=== PATIENT | female | born 1955 | race Caucasian/White ===

== ENCOUNTER 2018-07-21 03:07 | Observation (INO) | payer BC ==
[2018-07-21] MEDS ORDERED: methylPREDNISolone SOD SUCC 125 MG/2 ML VIAL ONE (03:15)
[2018-07-21] MEDS ORDERED: IPRATROPIUM/ALBUTEROL 3 ML DEYVIAL ONE (03:15)
[2018-07-21] MEDS ORDERED: IPRATROPIUM/ALBUTEROL 3 ML DEYVIAL IH ONE (03:29)
[2018-07-21] MEDS ORDERED: methylPREDNISolone SOD SUCC 125 MG/2 ML VIAL IVP ONE (03:29)
[2018-07-21 03:35] LABS: PLATELET COUNT 221 10^3/uL (150-400)
[2018-07-21] MEDS ORDERED: AZITHROMYCIN IV 500 MG in NS 250 ML IV ONE (04:08)
[2018-07-21] MEDS ORDERED: NS 500 ML IV ONE (04:08)
--- NOTE | 2018-07-21 04:13 | EDPHY ---
H & P Stated Complaint: SOB x1 hour Time Seen by Provider: 07/21/18 03:23 HPI/ROS: HPI The patient presents with shortness of breath, cough for the last several weeks though worse over last several days. The patient had that she was diagnosed with bronchitis April and never completely improved. She flew from [place] to [place] and since then she has deteriorated. She had ongoing shortness breath , dyspnea on exertion include going up 1 flight of stairs. She not had chest pain. She has not had lower extremity edema. She was trying to sleep tonight could not fall asleep so comes into the emergency department. She has a history of COPD and uses Advair daily. She has been on Lasix for the last 1 year. He has a history of hypertension though her blood pressure is well controlled. She is not aware of any heart problems. REVIEW OF SYSTEMS 10 systems were reviewed and negative with the exception of the elements mentioned in the history of present illness. PMHx: COPD, hypertension Soc Hx: Smoker, here with her sister, visiting her son's wedding here in [place] today PHYSICAL General Appearance: Alert, no distress Eyes: Pupils equal and round no pallor or injection ENT, Mouth: Mucous membranes moist Respiratory: Wheezing throughout all lung garcia, able to speak in complete sentences Cardiovascular: Tachycardic rate and regular rhythm Gastrointestinal: Abdomen is soft and non-tender, no masses, bowel sounds normal Neurological: A&O, moves all extremities Skin: Warm and dry, no rashes Musculoskeletal: Neck is supple non tender Extremities: symmetrical, full range of motion , no lower extremity edema Psychiatric: Patient is oriented X 3, there is no agitation Source: Patient Exam Limitations: No limitations - Personal History Current Tetanus/Diphtheria Vaccine: Yes - Medical/Surgical History Hx Asthma: No Hx Chronic Respiratory Disease: Yes Hx Diabetes: No Hx Cardiac Disease: No Hx Renal Disease: No Hx Cirrhosis: No Hx Alcoholism: No Hx HIV/AIDS: No Hx Splenectomy or Spleen Trauma: No Other PMH: bronchitis - Social History Smoking Status: Current every day smoker Constitutional: Initial Vital Signs Temperature (C) 36.4 C 07/21/18 03:08 Heart Rate 119 H 07/21/18 03:08 Respiratory Rate 30 H 07/21/18 03:08 Blood Pressure 134/77 H 07/21/18 03:08 O2 Sat (%) 84 L 07/21/18 03:08 O2 Delivery Mode Nasal Cannula O2 (L/minute) 2 Allergies/Adverse Reactions: No Known Allergies Allergy (Verified 07/21/18 08:25) Home Medications: Medication Instructions Recorded Esomeprazole Magnesium [Nexium] 20 mg PO DAILY 07/21/18 Fluticasone/Salmeter 250/50Mcg 1 puffs IH BID 07/21/18 [Advair 250/50 (*)] Furosemide [Lasix 20 MG (*)] 20 mg PO DAILY 07/21/18 Losartan Potassium 100 mg PO DAILY 07/21/18 Naproxen Sodium [Naprelan] 500 mg PO BID 07/21/18 Pramipexole Di-HCl [Mirapex 1 mg 1 mg PO HS 07/21/18 (*)] Medical Decision Making - Diagnostics EKG Interpretation: EKG: Complete interpretation has been separately recorded in the [facility] archive. Summary impression: Sinus tachycardia Imaging Results: X-ray demonstrates bilateral streaky infiltrates with cardiomegaly, interpreted by me, radiology interpretation pending. Imaging: I viewed and interpreted images myself Differential Diagnosis: 63-year-old female with history of COPD, hypertension presents with progressive shortness of breath, cough since arriving to [place] 3 days ago. Here, she is hypoxic, tachypneic, short of breath. She received DuoNeb prior to my assessment with improved her symptoms. Chest x-ray revealed at diffuse streaky infiltrates throughout both lung garcia with cardiomegaly concerning for CHF with acute decompensation. BNP was also elevated at 1800. Patient has an elevated creatinine with no prior history of such at 2.0. She admits that she is not urinating much lately. She does take Lasix and her dose has not changed recently. Her white blood cell count is elevated and it is difficult to tell if there is underlying pneumonia, thus I have treated her with ceftriaxone and azithromycin and have sent blood cultures. Her influenza testing is negative. She is requiring 4 L of oxygen though is adamant about being discharged because she would like to attend her son's wedding. We will able to arrange for an oxygen tank for her to go. However, about 3 hr into her stay she stood up to go to the bathroom and felt extremely short of breath. I have encouraged her to be admitted to the hospital and not leave against medical advice. Potentially family arrived and convinced her to be admitted to the hospital. I consulted with Dr. Olmos of the hospitalist [facility] pp consultant and we will admit her to the PCU. Given that she has an elevated D-dimer with GFR which is approximately 30, we have ordered a V/Q scan which will happen later this morning. - Data Points Laboratory Results: Laboratory Results 07/21/18 03:25 07/21/18 03:25 Medications Given: Albuterol/Ipratropium (Duoneb) 3 ml IH QID CHAS Stop: 01/17/19 11:59 Last Admin: 07/21/18 21:52 Dose: 3 ml Heparin Sodium (Porcine) (Heparin Sc Injection) 5,000 unit SC Q8 CHAS Stop: 01/17/19 13:59 Last Admin: 07/21/18 20:26 Dose: 5,000 unit Methylprednisolone Sodium Succinate (Solu-Medrol) 60 mg IVP Q6HRS CHAS Stop: 01/17/19 11:59 Last Admin: 07/22/18 00:47 Dose: 60 mg Pramipexole Dihydrochloride (Mirapex) 1 mg PO HS CHAS Stop: 01/17/19 20:59 Last Admin: 07/21/18 20:26 Dose: 1 mg Fluticasone/Salmeterol (Advair) 1 puffs IH BID CHAS Stop: 01/17/19 08:59 Last Admin: 07/21/18 22:15 Dose: 1 puffs Discontinued Medications Albuterol/Ipratropium (Duoneb) 3 ml IH EDNOW ONE Stop: 07/21/18 03:30 Last Admin: 07/21/18 03:31 Dose: 3 ml Furosemide (Lasix Injection) 20 mg IVP ONCE ONE Stop: 07/21/18 11:28 Last Admin: 07/21/18 13:00 Dose: 20 mg Azithromycin 500 mg/ Sodium (Chloride) 255 mls @ 255 mls/hr IV EDNOW ONE PRN Reason: Protocol Stop: 07/21/18 05:07 Last Admin: 07/21/18 04:41 Dose: 255 mls Ceftriaxone Sodium/Dextrose (Rocephin 1 Gm (Premix)) 50 mls @ 100 mls/hr IV EDNOW ONE PRN Reason: Protocol Stop: 07/21/18 04:37 Last Admin: 07/21/18 04:21 Dose: 50 mls Sodium Chloride (Ns) 500 mls @ 1,000 mls/hr IV EDNOW ONE PRN Reason: Protocol Stop: 07/21/18 04:37 Last Admin: 07/21/18 04:21 Dose: 500 mls Methylprednisolone Sodium Succinate (Solu-Medrol) 125 mg IVP EDNOW ONE Stop: 07/21/18 03:30 Last Admin: 07/21/18 03:31 Dose: 125 mg Point of Care Test Results: Chemistry 07/21/18 07/21/18 05:53 05:28 POC Sodium 137 mEq/L mEq/L (135-145) POC Potassium 4.1 mEq/L mEq/L (3.3-5.0) POC Chloride 102 mEq/L mEq/L (97-110) POC Total CO2 20 mEq/L L mEq/L (22-31) POC BUN 31 mg/dL H mg/dL (7-23) POC Creatinine 2.0 mg/dL H mg/dL (0.6-1.0) POC Glucose 128 mg/dL H mg/dL (70-100) POC Troponin I 0.09 ng/mL H ng/mL (0.00-0.08) ISTAT H&H 07/21/18 05:28 POC Hgb 11.6 gm/dL L gm/dL (12.6-16.3) POC Hct 34 % L % (38-47) Departure - Departure Disposition: [facility] Inpatient Acute Clinical Impression: Chronic obstructive pulmonary disease with acute exacerbation, Hypoxia Acute renal failure Qualifiers: Acute renal failure type: unspecified Qualified Code(s): N17.9 - Acute kidney failure, unspecified Acute exacerbation of congestive heart failure Qualifiers: Heart failure type: unspecified Qualified Code(s): I50.9 - Heart failure, unspecified Condition: Fair
--- NOTE | 2018-07-21 04:37 | PDHOMEO2F ---
Home Oxygen Face to Face Home Orders: I certify that a physician or a nurse practitioner or physician's volunteer services assistant has had a [id number] encounter with this patient on the date of this order due to the diagnosis listed, which relates to the primary reason the patient requires home oxygen. Alternative treatments have been tried, or considered, and deemed ineffective. It is anticipated that supplemental oxygen will result in improvement with treatment. Home oxygen qualifying diagnosis: hypoxia SpO2 on room air (%): 84% Frequency of home oxygen needed: continuous Home oxygen liters per minute: 2L Home oxygen delivery device: nasal cannula Concentrator: No E-tanks for mobility and back up: Yes If ordering portable O2, is the patient mobile in the home?: Yes I certify that, based on these findings, the home oxygen is medically necessary for this patient for the following length of time. Length of time home oxygen needed: 1 week
--- NOTE | 2018-07-21 08:27 | PDGENHP ---
History and Physical - Chief Complaint shortness of breath - History of Present Illness shortness of hbcarina started in mid may. went to [facility] and was given breahing treatment, azithro, and prednisone. she completed this june 30. she got a colonoscopy on june 30 and the tech noted that she was still hypoxic. she thinks she sort of felt better but not completely. she still felt short of breath but it was not as bad. she continued to smoke a half a pack a day of tobacco. she drove out here from [place] for her sons wedding and arrived here tuesday. since arrival here she has been markedly more short of breath. last night she finally felt like she could not breath at rest. this prompted her to come to the ER. she had orthopnea last night. she has been coughing up yellow phlegm. no increased edema. She has tried using her inhaler but it is not helping. she does not have a fever, or chills, but does have a runny nose. History Information - Allergies/Home Medication List Allergies/Adverse Reactions: No Known Allergies Allergy (Verified 07/21/18 08:25) Home Medications: Esomeprazole Magnesium [Nexium] 20 mg PO DAILY 07/21/18 [Last Taken 07/20/18] Fluticasone/Salmeter 250/50Mcg [Advair 250/50 (*)] 1 puffs IH BID 07/21/18 [ Last Taken 07/20/18 21:00] Furosemide [Lasix 20 MG (*)] 20 mg PO DAILY 07/21/18 [Last Taken 07/20/18] Losartan Potassium 100 mg PO DAILY 07/21/18 [Last Taken 07/20/18] Naproxen Sodium [Naprelan] 500 mg PO BID 07/21/18 [Last Taken 07/20/18 09:00] Pramipexole Di-HCl [Mirapex 1 mg (*)] 1 mg PO HS 07/21/18 [Last Taken 07/20/18] I have personally reviewed and updated: family history, medical history, social history, surgical history - Past Medical History COPD, GERD, hypertension Additional medical history: right hip replacement, spine growth removed, - Surgical History Reports: no pertinent surgical hx - Family History Positive for: non-pertinent - Social History Smoking Status: Current every day smoker Review of Systems Review of Systems: ROS: 10pt was reviewed & negative except for what was stated in HPI & below Physical Exam Physical Exam: Temp Pulse Resp BP Pulse Ox 36.4 C 103 H 18 110/78 94 07/21/18 03:08 07/21/18 07:47 07/21/18 07:47 07/21/18 07:47 07/21/18 07:47 O2 (L/minute) 2 Constitutional: no apparent distress Eyes: PERRL Ears, Nose, Mouth, Throat: moist mucous membranes Cardiovascular: regular rate and rhythym Respiratory: reduced air movement, expiratory wheeze Gastrointestinal: normoactive bowel sounds Genitourinary: no bladder fullness Skin: warm Musculoskeletal: full muscle strength Neurologic: AAOx3 Psychiatric: interacting appropriately Lymph, Heme, Immunologic: no cervical LAD Lab Data & Imaging Review 07/21/18 03:25 07/21/18 03:25 WBC 17.32 10^3/uL (3.80-9.50) H 07/21/18 03:25 RBC 3.30 10^6/uL (4.18-5.33) L 07/21/18 03:25 Hgb 11.1 g/dL (12.6-16.3) L 07/21/18 03:25 POC Hgb 11.6 gm/dL (12.6-16.3) L 07/21/18 05:28 Hct 33.5 % (38.0-47.0) L 07/21/18 03:25 POC Hct 34 % (38-47) L 07/21/18 05:28 MCV 101.5 fL (81.5-99.8) H 07/21/18 03:25 MCH 33.6 pg (27.9-34.1) 07/21/18 03:25 MCHC 33.1 g/dL (32.4-36.7) 07/21/18 03:25 RDW 13.4 % (11.5-15.2) 07/21/18 03:25 Plt Count 221 10^3/uL (150-400) 07/21/18 03:25 MPV 10.4 fL (8.7-11.7) 07/21/18 03:25 Neut % (Auto) 85.9 % (39.3-74.2) H 07/21/18 03:25 Lymph % (Auto) 6.6 % (15.0-45.0) L 07/21/18 03:25 [place] % (Auto) 6.6 % (4.5-13.0) 07/21/18 03:25 Eos % (Auto) 0.2 % (0.6-7.6) L 07/21/18 03:25 Baso % (Auto) 0.2 % (0.3-1.7) L 07/21/18 03:25 Nucleat RBC Rel Count 0.0 % (0.0-0.2) 07/21/18 03:25 Absolute Neuts (auto) 14.85 10^3/uL (1.70-6.50) H 07/21/18 03:25 Absolute Lymphs (auto) 1.15 10^3/uL (1.00-3.00) 07/21/18 03:25 Absolute Monos (auto) 1.15 10^3/uL (0.30-0.80) H 07/21/18 03:25 Absolute Eos (auto) 0.04 10^3/uL (0.03-0.40) 07/21/18 03:25 Absolute Basos (auto) 0.04 10^3/uL (0.02-0.10) 07/21/18 03:25 Absolute Nucleated RBC 0.00 10^3/uL (0-0.01) 07/21/18 03:25 Immature Gran % 0.5 % (0.0-1.1) 07/21/18 03:25 Immature Gran # 0.09 10^3/uL (0.00-0.10) 07/21/18 03:25 D-Dimer 1.29 ug/mLFEU (0.00-0.50) H 07/21/18 03:25 VBG Lactic Acid 1.1 mmol/L (0.7-2.1) 07/21/18 05:55 POC Sodium 137 mEq/L (135-145) 07/21/18 05:28 Sodium 137 mEq/L (135-145) 07/21/18 03:25 POC Potassium 4.1 mEq/L (3.3-5.0) 07/21/18 05:28 Potassium 4.0 mEq/L (3.5-5.2) 07/21/18 03:25 POC Chloride 102 mEq/L (97-110) 07/21/18 05:28 Chloride 103 mEq/L (97-110) 07/21/18 03:25 Carbon Dioxide 18 mEq/l (22-31) L 07/21/18 03:25 POC Total CO2 20 mEq/L (22-31) L 07/21/18 05:28 Anion Gap 16 mEq/L (6-14) H 07/21/18 03:25 POC BUN 31 mg/dL (7-23) H 07/21/18 05:28 BUN 34 mg/dL (7-23) H 07/21/18 03:25 Creatinine 2.1 mg/dL (0.6-1.0) H 07/21/18 03:25 POC Creatinine 2.0 mg/dL (0.6-1.0) H 07/21/18 05:28 Estimated GFR 24 07/21/18 03:25 Glucose 107 mg/dL (70-100) H 07/21/18 03:25 POC Glucose 128 mg/dL (70-100) H 07/21/18 05:28 Calcium 8.9 mg/dL (8.5-10.4) 07/21/18 03:25 POC Troponin I 0.09 ng/mL (0.00-0.08) H 07/21/18 05:53 NT-Pro-B Natriuret Pep 1800 pg/mL (0-125) H 07/21/18 03:25 Nasal Influenza A PCR NEGATIVE FOR FLU A (NEGATIVE) 07/21/18 04:20 Nasal Influenza B PCR NEGATIVE FOR FLU B (NEGATIVE) 07/21/18 04:20 RSV (PCR) NEGATIVE FOR RSV (NEGATIVE) 07/21/18 04:20 Assessment & Plan Assessment: CHF exacerbation- clinically the patient looks euvolemic on examination. BNP is 1800. I reviewed the chest x-ray which does not show any cardiomegaly but possible mild pulmonary edema. Etiology of elevated BNP may be related to hypoxia from coming from low elevation in the setting of COPD exacerbation. -check echo -caution with Lasix given her underlying acute kidney injury -IV lasix 20mg IV and assess response Acute hypoxemic respiratory- likely secondary to COPD exacerbation, and coming [place] sea [place] altitude. May be underlying CHF exacerbation as well. Her D-dimer is elevated so Old pursue a V/Q scan as well given that she has underlying renal insufficiency. -treat COPD exacerbation with steroids,abx, nebs -V/Q scan to rule out PE -oxygen - Chronic obstructive pulmonary disease with acute exacerbation (Acute)- chest x- ray with no obvious pulmonary infiltrates to suggest bacterial pneumonia. Flu swab negative. She does have a white count and is complaining of coughing up yellow phlegm. -Rocephin and azithromycin -Solu-Medrol 60 q.6 -nebs -oxygen p.r.n. Elevated troponin- EKG with sinus tachycardia and no acute ST or T-wave changes to suggest ischemia. Likely her mildly elevated troponin is due to demand ischemia in the setting of COPD exacerbation and oxygen supply/demand mismatch. Will cycle troponins and any acute jump will prompt cardiology consultation. FRANCHESKA-patient denies any history of underlying kidney disease but she does take an angiotensin receptor trell and fair amount of NSAIDs both of which may have contributed to her bump in creatinine. At this point she looks euvolemic with possibly trace pitting edema. -hold fluids -repeat in am Hypertension- she is borderline hypotensive currently. Will hold losartan in the setting of underlying acute kidney injury. Restless legs- continue Mirapex GERD- hold PPI with her underlying francheska, will start Pepcid Prophylaxis- SCDs and heparin Fluids- none for now Electrolytes- replete Mag Nutrition-cardiac diet Cor- full Dispo- observation for now as she does have the potential to improve
[2018-07-21] MEDS ORDERED: ALBUTEROL 60 PUFFS/8 GM MDI IH PRN (08:33)
[2018-07-21] MEDS ORDERED: ONDANSETRON DISINTEGRATING 4 MG TAB PO PRN (08:33)
[2018-07-21] MEDS ORDERED: ACETAMINOPHEN 325 MG TAB PO PRN (08:33)
[2018-07-21] MEDS ORDERED: ONDANSETRON 4 MG/2 ML VIAL IVP PRN (08:33)
[2018-07-21] MEDS: FLUTICASONE/SALMETER 250/50MCG DISKUS IH SCH ×2 (09:30→22:15)
--- NOTE | 2018-07-21 10:13 | ECHO ---
[email or web address] [address] [address] Main: [phone] Echocardiography Examination Transthoracic Name: MEL ROQUE MR#: [id number] Study Date: 07/21/2018 Study Time: 09:32 AM Date of : 1955 Age: 63 year(s) Height: 167.6 cm (66 in.) Weight: 113.4 kg (250 lb.) BSA: 2.2 m2 Gender: Female Examination: Echo Contrast: Image Quality: Adequate Rhythm: Heart Rate: BP: 117 mmHg/75 mmHg Indication: hypoxia, elevated BNP, sob from [place] Procedure Staff Referring Physician: Lining Repairer: Marla Wyman RDCS Reading Physician: Torres Alejandra MD Requesting Provider: Ordering Physician: Will Amor Indication: hypoxia, elevated BNP, sob from [place] Measurements Chambers AV/MV Label Value Normal Value Label Value Normal Value IVSd, 2D 1.1 cm (0.6cm - 1.1cm) AV PGmax 8 mmHg LVDd, 2D 4.5 cm (3.9cm - 5.3cm) AV PGmean 5 mmHg LVDs, 2D 3 cm (2.1cm - 4cm) AV Vmax 1.39 m/s LVEF, 2D 64 % (54% - 74%) MARGARITO D (continuity eq. 2.2 cm2 LVEF, BP 63 % (55% - 70%) VTI) LVOT PGmean 3 mmHg MV A Vmax 0.67 m/s LVOT Vmean 0.77 m/s MV DT 151 ms LVOTd 1.9 cm (1.8cm - 2cm) MV E' lateral 0.11 m/s LVPWd, 2D 1 cm MV E' mean 0.12 m/s LA Volume, BP 50 ml (22ml - 52ml) MV E' septal 0.12 m/s LADs, 2D 3.7 cm (2.7cm - 3.8cm) MV E Vmax 0.85 m/s LAESV index, BP 22.7 ml/m2 MV E/A 1.27 Additional Vessels MV E/E' lateral 8 Label Value Normal Value MV E/E' mean 7.39 AoRoot, 2D 2.9 cm (1.4cm - 2.6cm) MV E/E' septal 7.3 (0.45 - 1.25) MV PHT 0.04 s MV PHT 44 ms MVA PHT 5 cm2 TV/PV Patient: MEL ROQUE Study Date: 07/21/2018 Page 1 of 2 09:32 AM Label Value Normal Value RA Pressure 5 mmHg RVSP 33 mmHg TR Pmax 28 mmHg TR Vmax 2.65 m/s PV PGmax 3 mmHg PV Vmax, Caliper 0.8 m/s (0.6m/s - 0.9m/s) Conclusions Overall Conclusions: Limited study. Preserved LV systolic function. Normal right ventricular systolic function. No significant valvular abnormalities. Right ventricular systolic pressure estimated at 33 mm of mercury Findings Very technically difficult exam due to body habitus and difficulty breathing, limited windows. Left Ventricle: Left ventricle is normal in size. Normal global systolic left ventricular function. The ejection fraction, measured by Simpsons method, is 63 %. Left ventricle wall thickness is normal. There are no regional wall motion abnormalities. Right Ventricle: Normal size right ventricle. Right ventricular systolic function is normal. Left Atrium: The left atrium is normal in size. Right Atrium: The right atrium is normal in size. Mitral Valve: Mitral valve appears structurally normal. Trivial mitral regurgitation. No mitral valve stenosis. Aortic Valve: Aortic valve not well visualized. No significant aortic valve regurgitation. There is no aortic stenosis. Tricuspid Valve: Tricuspid valve leaflets are structurally normal. Mild tricuspid regurgitation. No tricuspid valve stenosis. Right Ventricular systolic pressure is measured at 33 mmHg. Pulmonary artery pressure normal. Pulmonic Valve: Pulmonic valve not well visualized. Aorta: The aortic root size in 2D measures 2.9 cm. Aorta Measurements AoRoot, 2D is 2.9 cm. Pericardium: No pericardial effusion. Exam Details Procedure Ordered: Echo Procedure Status: Routine study Image Quality: Adequate Facility Location: Cardiac Echo 1 (No Signature Object) Patient: MEL ROQUE Study Date: 07/21/2018 Page 2 of 2 09:32 AM [id number]
[2018-07-21] MEDS ORDERED: FUROSEMIDE 20 MG/2 ML VIAL IVP ONE (11:27)
[2018-07-21] MEDS: IPRATROPIUM/ALBUTEROL 3 ML DEYVIAL IH SCH ×3 (11:46→21:52)
[2018-07-21] MEDS: methylPREDNISolone SOD SUCC 125 MG/2 ML VIAL IVP SCH ×2 (13:00→18:10)
[2018-07-21] MEDS: HEPARIN 5,000 UNIT/0.5 ML INJ SC SCH ×2 (13:17→20:26)
[2018-07-21] MEDS: PRAMIPEXOLE 1 MG TAB PO SCH (20:26)
[2018-07-22] MEDS: methylPREDNISolone SOD SUCC 125 MG/2 ML VIAL IVP SCH ×4 (00:47→17:35)
[2018-07-22 04:13] LABS: PLATELET COUNT 223 10^3/uL (150-400)
[2018-07-22] MEDS: IPRATROPIUM/ALBUTEROL 3 ML DEYVIAL IH SCH ×4 (06:01→20:56)
[2018-07-22] MEDS: FLUTICASONE/SALMETER 250/50MCG DISKUS IH SCH ×2 (06:11→20:57)
[2018-07-22] MEDS: HEPARIN 5,000 UNIT/0.5 ML INJ SC SCH ×3 (06:11→20:07)
[2018-07-22] MEDS ORDERED: AZITHROMYCIN IV 500 MG in NS 250 ML IV SCH (09:00)
--- NOTE | 2018-07-22 10:17 | ASMTCMCOM ---
CM Note CM Note Notes: Chart reviewed for discharge planning purposes. 63 year old female here from [place] for her son's wedding and became increasingly SOB. HX of COPD, HTN. Will require oxygen for discharge. Orders in computer. CM available should other needs arise. Plan: Dc to home with oxygen when medically cleared for discharge. Date Signed: 07/22/2018 10:17 AM Electronically Signed By:Jaky Peralta RN
--- NOTE | 2018-07-22 13:08 | HOSPPROG ---
Hospitalist Progress Note Assessment/Plan: DIAGNOSES: * Acute hypoxemic respiratory failure * COPD exacerbation * Acute kidney injury * Acute metabolic acidosis with anion gap * Chronic hypertension * Macrocytic anemia * Elevation procalcitonin ? Cause of this acute episode -Absence of fever and infiltrate on chest x-ray argue against against pneumonia ; elevated procalcitonin could have other causes; she does have a fairly elevated white blood cell count on arrival -I believe that chest x-ray findings in the way of pulmonary edema are equivocal at the worst, and her echocardiogram looks good -D-dimer elevated, V/Q scan is read as low probability day, though as I reviewed the images I am not convinced there isn't a pre fusion defect in the left mid lung posterior laterally; she did just travel here, not on any chronic anticoagulation, and has tachycardia of significance -Respiratory pathogen panel has not been done but flu and RSV are negative -elevated troponins do not I believe in this case indicate acute coronary syndrome but are caused by her acute respiratory event Overall I think this is probably predominantly a COPD exacerbation, but with tachycardia, travel, high D-dimer, high troponin in a smoker there is no way to rule out PE at this time. The V/Q scan is read as low probability but I actually disagree with the interpretation and when called at least indeterminate based on left upper lobe findings. PLANS: * Continue supportive respiratory care including oxygen, pulmonary toilet, bronchodilators, steroid * Doppler ultrasound of legs to rule out DVT, treat if positive * If Doppler studies negative, will still want to get a CT scan but need to get her creatinine down little bit more. Encouraged her to keep drinking and can check a creatinine again later today might still be able to do CT tonight versus tomorrow morning * For the moment will continue empiric antibiotics, though she probably needs just the azithromycin SUBJECTIVE: Less short of breath today than yesterday Still with cough Does admit that she has been having intermittently some chest discomfort during the week, can't clearly define pleuritic or not OBJECTIVE Vitals reviewed: Remains tachycardic with regular pulse at 110 by my exam, remains tachypneic in 30s, blood pressure good no fever Lead Recreation Assistant, my review: Sinus tachycardia Exam: alert oriented not in real distress skin warm dry color ok resps not labored lungs diminished breath sounds with some mild expiratory wheeze heart regular abd soft nondistended nontender, bowel sounds present limbs warm, trace edema, much varicosity iv site ok Echocardiogram: Normal ejection fraction 63 without valvular abnormalities and pulmonary pressure at 33 Imaging: V/Q scan read as low probability; I reviewed the images myself. The ventilation scans as predictable are diffusely abnormal with decreased ventilation. On the perfusion scans I believe there is a left upper lobe abnormality that is not highly prominent but does not appear normal to me and it is a wedge-shaped Lab data: Creatinine improved at 1.7, though notably the BUN has increased to 41 And anion gap is resolved but there is still some mild metabolic acidosis Troponins unchanged over for test at 0.06 Mild elevation of sugar White count remains fairly elevated at 14,000 thousand Hemoglobin slightly decreased from yesterday at 10.5 Test for RSV and influenza are negative Objective: Vital Signs Temp Pulse Resp BP Pulse Ox 36.9 C 89 22 H 124/73 H 92 07/22/18 11:10 07/22/18 12:25 07/22/18 12:25 07/22/18 11:10 07/22/18 12:25 Laboratory Results 07/22/18 03:15 07/22/18 03:15 07/21/18 07/22/18 07/23/18 06:59 06:59 06:59 Intake Total 850 Balance 850 - Time Spent With Patient Time Spent with Patient: greater than 35 minutes Time Spent with Patient: Greater than 35 minutes spent on this patients care, greater than 50% of time spent counseling, educating, and coordinating care regarding the above mentioned plan. ICD10 Worksheet Patient Problems: Problems Problem Status Onset Acute exacerbation of congestive heart failure Acute Acute renal failure Acute Chronic obstructive pulmonary disease with acute exacerbation Acute Hypoxia Acute
[2018-07-22] MEDS ORDERED: NS 1,000 ML IV SCH (18:00)
[2018-07-22] MEDS ORDERED: IOPAMIDOL (ISOVUE 370) 100 ML BTL IV ONE (18:11)
[2018-07-22] MEDS: PRAMIPEXOLE 1 MG TAB PO SCH ×2 (20:06→20:07)
[2018-07-23] MEDS: methylPREDNISolone SOD SUCC 125 MG/2 ML VIAL IVP SCH ×2 (02:34→05:42)
[2018-07-23] MEDS: IPRATROPIUM/ALBUTEROL 3 ML DEYVIAL IH SCH (05:32)
[2018-07-23] MEDS: HEPARIN 5,000 UNIT/0.5 ML INJ SC SCH (05:43)
[2018-07-23] MEDS: FLUTICASONE/SALMETER 250/50MCG DISKUS IH SCH (05:43)
[2018-07-23 08:01] VITALS: BP 136/70
--- NOTE | 2018-07-23 08:55 | PDDCSUM ---
Discharge Summary Discharge Summary: DISCHARGE DIAGNOSES: * Acute hypoxemic respiratory failure * COPD exacerbation * Bronchitis * Dehydration * Acute renal failure, hemodynamic mechanism, resolving PROCEDURES: CT angiogram of chest which showed no pulmonary embolism, bronchitis present Doppler ultrasound of legs, showing no DVT HOSPITAL COURSE SUMMARY: This patient who has known COPD and continues to smoke on a daily basis, came here from [place] to visit her son who got . She was a little bit short of breath from altitude on the 1st couple of days but by day 3 began to feel much more short of breath and have significant increase in cough. She began to feel somewhat weak. Notably she had not been hydrating very well upon arrival here. Under evaluation she had obvious COPD exacerbation with hypoxemic respiratory failure, and had evidence of significant dehydration. Her initial pulse was 120 and her creatinine was at 2.1 which was felt to be due to dehydration and losartan. There was elevation of D-dimer and indeterminate level elevation of troponin. There is no evidence of ischemia or heart failure. CT angiogram the chest showed no PE but bronchitis was present. Doppler ultrasound of the legs showed no DVT. She is admitted to the hospital and treated with bronchodilators, steroid, and antibiotic. She also received some IV hydration. She has improved remarkably here. Her breathing feels much better though is not quite yet back to baseline. She is now not hypoxemic at rest but feels better with oxygen on. She is able to ambulate in the hallway well at this time. She is eating well and taking in oral fluids well. Her creatinine has decreased from 2.1-1.5. Her heart rate has improved from the initial 120 down to the 80s though with DuoNeb dosing she still gets faster heart rate intermittently. At this point she is stable for discharge from the hospital. Due to the tachycardic effective DuoNeb I am prescribing Xopenex inhaler for her. She will continue her usual Advair and will continue on some oral prednisone at this time. She will also continue azithromycin. She does not appear to need oxygen at this time. The patient smokes daily, is very inactive with no physical activity of significance at home, and is fairly obese. I reviewed with her that her COPD will progress over time and described what that will potentially look like. Discussed how her inactivity, her smoking, and her weight will aggravate her progressive decline in respiratory function and ability to be active and comfortable. I strongly recommended she work with her primary care physician to do anything possible to get away from tobacco altogether. Also strongly recommended that she look for referral to a pulmonary rehabilitation clinic and begin daily exercise. PENDING TEST RESULTS: Blood cultures which are negative to date at 48 hr MEDICATION CHANGES: Addition of Xopenex metered dose inhaler Addition of prednisone Addition of azithromycin FOLLOW-UP PLAN: With her primary care physician this week RECOMMENDATIONS: -seek referral to a warehouse order selector and maintain follow-up over time with the warehouse order selector -seek referral to a pulmonary rehabilitation clinic -take whatever measures are necessary to quit smoking Greater than 35 minutes bedside and care coordination time today
[2018-07-23] MEDS ORDERED: LEVALBUTEROL INHALER 200 PUFFS/15 GM MDI IH SCH (09:00)
[2018-07-23] MEDS ORDERED: AZITHROMYCIN 250 MG TAB PO SCH ×2 (09:00)
== END 2018-07-23 14:20 | disposition home or self-care (01) ==
LOC: INTOOBSV 07:14 → F2W 07:50
PROVIDERS: ADMIT Internal Medicine; ATTEND Internal Medicine
DX: J96.01 Acute respiratory failure with hypoxia (principal); J44.0 Chronic obstructive pulmonary disease with (acute) lower respiratory infection; E86.0 Dehydration; N17.9 Acute kidney failure, unspecified; F17.210 Nicotine dependence, cigarettes, uncomplicated; G25.81 Restless legs syndrome; K21.9 Gastro-esophageal reflux disease without esophagitis; Z96.641 Presence of right artificial hip joint
CPT/HCPCS: 71046; 71275; 78582; 93306; 93970; 96365; 96372; 96375; 96376; 99285; A9540; A9558; G0378; 82435-PO; 82565-PO; 82947-PO; 84132-PO; 84295-PO; 84484-ER; 84520-PO; 85014-ER; J0456; J0696; J1644; J1940; J2930; Q9967